=== PATIENT | male | born 1955 | race Caucasian/White ===

== ENCOUNTER 2018-03-02 17:04 | Emergency (ER) | payer OTHER ==
[~2018-03-02] VITALS: Ht 182.9 cm; Wt 81.6 kg
[2018-03-02] MEDS ORDERED: CRESTOR5 MG (17:15)
[2018-03-03] MEDS ORDERED: LEVSIN/SL0.125 MG SL (03:28)
== END 2018-03-03 03:36 | disposition home or self-care (01) ==
LOC: ER 17:04
DX: R10.32 Left lower quadrant pain (principal)